=== PATIENT | male | born 1960 | race Caucasian/White ===

== ENCOUNTER → 2017-12-07 | Day surgery (SDC) | payer OTHER, MEDICARE ==
[~2017-12-07] VITALS: Ht 182.9 cm; Wt 115.8 kg
[~2017-12-07] MED LIST: ADVAIR 250-501 EACH INH; AUGMENTIN 875-1 EACH PO; CARVEDILOL3.125 M1 PO; CIPRO250 M1 PO; CLONIDINE HCL0.1 MG PO; COUMADIN5 M2 PO; COUMADIN7.5 M1 PO; COZAAR25 M1 PO; DIGOXIN250 MCG PO; FENOFIBRATE134 M1 PO; FLUOXETINE HCL20 M2 PO; FLUOXETINE HCL40 M1 PO; GLIMEPIRIDE2 MG PO; JANUVIA50 M1 PO; PRAVASTATIN SOD40 M2 PO; SPIRIVA18 MCG INH; TAMSULOSIN HCL0.4 M1 PO; TERAZOSIN HCL5 M1 PO; VITAMIN B-121000 MC3 PO; VITAMIN D250000 UNIT PO; WARFARIN SODIUM5 M1 PO
--- NOTE | 2017-12-07 10:09 | Operative Report ---
Operative/Inv Procedure Report Surgery Date: 12/07/17 Name of Procedure: Cataract extraction lens implantation left eye Pre-Operative Diagnosis: Age-related cataract left eye 20/50 vision Post-Operative Diagnosis: Same Estimated Blood Loss: none Surgeon/Senior Lead Project Manager: Danyel SONG,Parmjit Pearson Anesthesia: local monitored anesthesi Complications: None Operative/Procedure Note Note: The patient was brought to the operating room standard monitoring equipment was attached the patient was prepped and draped in the usual fashion for intraocular surgery. A lid speculum was placed to retract the lids. The case was begun by making 2 partial-thickness corneal relaxing incisions at 75. A temporal incision with a 2.4 mm keratome. The eye was stabilized with a Thayer ring during this incision. 1 mL of non-preserved lidocaine was introduced into the anterior chamber to provide anesthesia. The anterior chamber was then filled and deepened with viscoelastic. A curvilinear capsulorrhexis was achieved using a 30-gauge needle and is a cystotome and capsulorrhexis was finished using a Utrata forceps. A second or paracentesis incision was made temporally with a 1 mm MVR blade. The lens was then hydrodissected with balanced salt solution and found to be rotatable. The lens was emulsified using phacoemulsification and a modified four-quadrant cracking technique. The residual cortical material was removed using automated irrigation and aspiration and as much of the anterior capsular rim was cleaned as well as possible. The posterior capsule was cleaned first with the automated machine on a low setting and then manually with a Og squeegee. The capsular bag was deepened with viscoelastic. The lens a Akreos AO60 18.5 Diopter placed into the bag under direct visualization and rotated so that the haptics were at 12 and 6:00. Viscoelastic was then removed from the eye by flushing it out and then by automated irrigation and aspiration. The eye was pressurized to a normal tone. 1/10 of a cc of vancomycin solution was introduced into the anterior chamber to provide antibiotic prophylaxis. The wounds were sealed by hydrating the stroma adjacent to them and the eye was left at a proper tone after the wounds were checked and found not to be leaking. The lid speculum was removed from the orbit. Antibiotic and steroid drops were placed on the eye and then the eye was shielded. Monitoring equipment was removed from the patient and the patient was removed from the operative suite to the holding area. The patient tolerated the procedure well and will be seen in the office tomorrow.
== END ==
LOC: STS 02:47
DX: H25.9 Unspecified age-related cataract (principal); E11.8 Type 2 diabetes mellitus with unspecified complications; Z79.84 Long term (current) use of oral hypoglycemic drugs; I10 Essential (primary) hypertension; Z85.528 Personal history of other malignant neoplasm of kidney; Z79.01 Long term (current) use of anticoagulants
CPT/HCPCS: J2250; V2632

== ENCOUNTER → 2018-01-04 | Day surgery (SDC) | payer OTHER, MEDICARE ==
[~2018-01-04] VITALS: Ht 182.9 cm; Wt 115.7 kg
--- NOTE | 2018-01-04 11:34 | Operative Report ---
Operative/Inv Procedure Report Surgery Date: 01/04/18 Name of Procedure: Cataract extraction lens implantation right eye Pre-Operative Diagnosis: Age-related cataract right eye 20/30 vision 20/60 glare vision Post-Operative Diagnosis: Same Estimated Blood Loss: none Surgeon/Counter Tender: Danyel SONG,Parmjit Pearson Anesthesia: local monitored anesthesi Complications: None Operative/Procedure Note Note: The patient was brought to the operating room standard monitoring equipment was attached the patient was prepped and draped in the usual fashion for intraocular surgery. A lid speculum was placed to retract the lids. The case was begun by making [2] partial-thickness corneal relaxing [incisions] at [90]. A temporal incision with a 2.4 mm keratome. The eye was stabilized with a Thayer ring during this incision. 1 mL of non-preserved lidocaine was introduced into the anterior chamber to provide anesthesia. The anterior chamber was then filled and deepened with viscoelastic. A curvilinear capsulorrhexis was achieved using a 30-gauge needle and is a cystotome and capsulorrhexis was finished using a Utrata forceps. A second or paracentesis incision was made temporally with a 1 mm MVR blade. The lens was then hydrodissected with balanced salt solution and found to be rotatable. The lens was emulsified using phacoemulsification and a modified four-quadrant cracking technique. The residual cortical material was removed using automated irrigation and aspiration and as much of the anterior capsular rim was cleaned as well as possible. The posterior capsule was cleaned first with the automated machine on a low setting and then manually with a Og squeegee. The capsular bag was deepened with viscoelastic. The lens a Akreos AO60 18.0 Diopter placed into the bag under direct visualization and rotated so that the haptics were at 12 and 6:00. Viscoelastic was then removed from the eye by flushing it out and then by automated irrigation and aspiration. The eye was pressurized to a normal tone. 1/10 of a cc of cefuroxime solution was introduced into the anterior chamber to provide antibiotic prophylaxis. The wounds were sealed by hydrating the stroma adjacent to them and the eye was left at a proper tone after the wounds were checked and found not to be leaking. The lid speculum was removed from the orbit. Antibiotic and steroid drops were placed on the eye and then the eye was shielded. Monitoring equipment was removed from the patient and the patient was removed from the operative suite to the holding area. The patient tolerated the procedure well and will be seen in the office tomorrow.
== END ==
LOC: STS 01:31
DX: H25.9 Unspecified age-related cataract (principal); E11.9 Type 2 diabetes mellitus without complications; Z79.84 Long term (current) use of oral hypoglycemic drugs; I10 Essential (primary) hypertension; I48.91 Unspecified atrial fibrillation; Z79.01 Long term (current) use of anticoagulants
CPT/HCPCS: J2250; V2632

== ENCOUNTER 2018-03-09 16:50 | Emergency (ER) | payer OTHER, MEDICARE ==
[~2018-03-09] VITALS: Ht 182.9 cm; Wt 115.2 kg
[2018-03-09 17:31] LABS: ABSOLUTE BASOPHIL COUNT 0 /CUMM (0.0-0.2); ABSOLUTE EOSINOPHIL COUNT 0.3 /CUMM (0.0-0.7); ABSOLUTE GRANULOCYTE CT 4.5 /CUMM (1.4-6.5); ABSOLUTE LYMPH COUNT 1.2 /CUMM (1.2-3.4); ABSOLUTE MONOCYTE COUNT 0.5 /CUMM (0.10-0.60); BASOPHIL % 0.2 % (0.0-2.0); EOSINOPHIL % 5.2 % (0-5); GRANULOCYTE % 68.7 % (42.2-75.2); HEMATOCRIT 40.2 % (42-52); MEAN CORPUSCULAR HGB 28.8 PG (27.0-31.0); MEAN CORPUSCULAR VOLUME 84.9 FL (80.0-94.0); MEAN PLATELET VOLUME 8.8 FL (7.4-10.4); PLATELET COUNT 221 /CUMM (130-400); RBC DISTRIBUTION WIDTH 14.6 % (11.5-14.5); RED BLOOD CELL CT 4.73 /CUMM (4.70-6.10); WHITE BLOOD CELL COUNT 6.6 /CUMM (4.8-10.8)
--- NOTE | 2018-03-09 21:24 | RADIOLOGY REPORT ---
EXAMINATION: LEFT KNEE 3 VIEWS CLINICAL INFORMATION: Left knee pain after fall. COMPARISON: None. TECHNIQUE: AP, lateral, oblique views of the left knee were obtained. FINDINGS: There are no fractures or dislocations. There is narrowing to the patellofemoral compartment with spurring. There is mild narrowing to the lateral compartment. There is a loose body present within the joint space. There is a juqzk-sk-nnvwursa knee joint effusion. There is medial and lateral compartment chondrocalcinosis. There is no significant soft tissue swelling. IMPRESSION: Qdqey-tq-gknxufmr knee joint effusion without demonstrable acute fracture. Chondrocalcinosis.
--- NOTE | 2018-03-09 21:25 | RADIOLOGY REPORT ---
EXAMINATION: XR HAND, LEFT CLINICAL INFORMATION: Fall onto hands. COMPARISON: None TECHNIQUE: AP and lateral views of the left hand. FINDINGS: The bones and soft tissues are normal. No fracture. Alignment is anatomic. Joint spaces are maintained. No erosions or soft tissue calcifications. IMPRESSION: Normal left hand.
--- NOTE | 2018-03-09 21:34 | RADIOLOGY REPORT ---
EXAMINATION: XR HAND, RIGHT CLINICAL INFORMATION: Fall onto hands. COMPARISON: None TECHNIQUE: AP and lateral views of the right hand. FINDINGS: The bones and soft tissues are normal. No fracture. Alignment is anatomic. Joint spaces are maintained. No erosions or soft tissue calcifications. IMPRESSION: Normal right hand.
--- NOTE | 2018-03-09 21:40 | ED MVC/FALL/TRAUMA COMPLAINT ---
History of Present Illness General Chief Complaint: General Adult Stated Complaint: LEFT KNEE ABRASION Source: patient, family, old records Exam Limitations: no limitations Vital Signs & Intake/Output Vital Signs & Intake/Output Vital Signs Date Time Temp Pulse Resp B/P B/P Pulse O2 O2 Flow FiO2 Mean Ox Delivery Rate 03/09 2208 96.5 56 18 178/80 100 Room Air 03/09 1703 97.8 98 16 159/86 96 Room Air ED Intake and Output 03/10 0000 03/09 1200 Intake Total 0 Output Total Balance 0 Intake, Oral 0 Patient 254 lb Weight Allergies Coded Allergies: No Known Allergies (10/20/17) Reconcile Medications Carvedilol 3.125 MG TABLET 1 TAB PO BID HEART/BP (Reported) Clonidine HCl 0.1 MG TABLET 1 TAB PO QPM SLEEP (Reported) Cyanocobalamin (Vitamin B-12) 1,000 MCG TABLET 1 TAB PO DAILY SUPPLEMENT ( Reported) Digoxin 250 MCG TABLET 1 TAB PO DAILY HEART (Reported) Ergocalciferol (Vitamin D2) (Vitamin D2) 50,000 UNIT CAPSULE 1 CAP PO Q2W SUPPLEMENT (Reported) Fenofibrate,Micronized (Fenofibrate) 134 MG CAPSULE 1 CAP PO DAILY CHOLESTEROL /TRIGLYCERIDES (Reported) Fluoxetine HCl 40 MG CAPSULE 1 CAP PO DAILY MENTAL HEALTH (Reported) Glimepiride 2 MG TABLET 1 TAB PO BID DM (Reported) Losartan Potassium (Cozaar) 25 MG TABLET 1 TAB PO DAILY BP (Reported) Pravastatin Sodium 40 MG TABLET 1 TAB PO DAILY CHOLESTEROL (Reported) Sitagliptin Phosphate (Januvia) 50 MG TABLET 1 TAB PO DAILY DIABETES ( Reported) Tamsulosin HCl 0.4 MG CAP.ER.24H 1 CAP PO DAILY PROSTATE (Reported) Warfarin Sodium (Coumadin) 5 MG TABLET 1 TAB PO AD BLOOD THINNER (Reported) Warfarin Sodium (Coumadin) 7.5 MG TABLET 1 TAB PO WEDFRI BLOOD THINNER ( Reported) Triage Note: 58 YEAR OLD MALE , STATES THAT HE TRIPPED AND FELL EARLIER AND HAS ABRASION TO HIS L KNEE, PT ALSO COMPLAINS OF FLANK PAIN FOR ABOUT 1 WEEK AND MID STERNAL NON RADIATING CP FOR THE PAST WEEK, DENIES CP AT THIS TIME. 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 DENIES PAIN TO HIS KNEE Triage Nurses Notes Reviewed? yes Onset: Just prior to arrival Duration: minute(s):, constant, continues in ED Timing: recent history Severity: mild Injuries/Fall Location: upper extremity, lower extremity Method of Injury: fall Loss of Consciousness: no loss of consciousness No Modifying Factors: none HPI: Prior to admission patient lost his balance and fell onto his left knee and both hands. He sustained abrasion to the left knee. He denies fever chills nausea vomiting diarrhea abdominal pain chest pain shortness breath headache dysuria rash other injury change in motor sensory function change in bowel bladder. Past History Travel History Traveled to [place] past 21 day No Medical History Any Pertinent Medical History? 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 No Review of Systems Review of Systems Constitutional: Reports: no symptoms. Eyes: Reports: no symptoms. Ears, Nose, Throat, Mouth: Reports: no symptoms. Respiratory: Reports: no symptoms. Cardiovascular: Reports: no symptoms. Gastrointestinal/Abdominal: Reports: no symptoms. Genitourinary: Reports: no symptoms. Musculoskeletal: Reports: see HPI, joint pain. Skin: Reports: see HPI. Neurological/Psychological: Reports: no symptoms. All Other Systems: Reviewed and Negative Physical Exam Physical Exam General Appearance: well developed/nourished, alert, awake, anxious, obese Head: atraumatic, normal appearance Eyes: Bilateral: normal appearance, PERRL, EOMI, normal inspection. Ears, Nose, Throat, Mouth: hearing grossly normal, moist mucous membrane Neck: normal inspection, supple, full range of motion, normal alignment Respiratory: normal breath sounds, chest non-tender, no respiratory distress, quiet respiration, lungs clear Cardiovascular: normal peripheral pulses, irregularly irregular, norml femoral pulses equa Peripheral Pulses: 4+ carotid (R), 4+ carotid (L) Gastrointestinal: normal bowel sounds, soft, non-tender, no organomegaly Back: normal inspection, normal range of motion, no vertebral tenderness Extremities: normal range of motion, no ligament instability, Abrasion left knee not actively bleeding Neurologic/Psych: no motor/sensory deficits, awake, alert, oriented x 3, normal gait, normal mood/affect, soundscriber mechanic II-XII nml as tested Skin: normal color Core Measures ACS in differential dx? No CVA/TIA Diagnosis No Sepsis Present: No Sepsis Focused Exam Completed? No Progress Differential Diagnosis: ext injury Plan of Care: Orders Procedure Date/time Status URINALYSIS 03/09 1707 Complete TROPONIN LEVEL 03/09 1707 Complete COMPREHENSIVE METABOLIC PANEL 03/09 1707 Complete CBC WITHOUT DIFFERENTIAL 03/09 1707 Complete EKG 03/09 1656 Active Laboratory Tests 03/09/181716: Urine Color YEL, Urine Clarity CLDY H, Urine pH 6.0, Ur Specific [place] 1.025, Urine Protein 100 H, Urine Ketones NEG, Urine Nitrite POS H, Urine Bilirubin NEG, Urine Urobilinogen 0.2, Ur Leukocyte Esterase TRACE H, Ur Microscopic SEDIMENT EXAMINED, Urine RBC 3-5, Urine WBC 5-10 H, Ur Epithelial Cells RARE, Urine Bacteria MANY H, Urine Hemoglobin SMALL H, Urine Glucose NEG 03/09/181709: Anion Gap 8, Estimated GFR 32 L, BUN/Creatinine Ratio 21.4, Glucose 195 H, Calcium 9.2, Total Bilirubin 0.5, AST 26, ALT 41, Alkaline Phosphatase 62, Troponin I 0.02, Total Protein 6.1 L, Albumin 3.5, Globulin 2.6, Albumin/ Globulin Ratio 1.3, CBC w Diff NO MAN DIFF REQ, RBC 4.73, MCV 84.9, MCH 28.8, MCHC 34.0, RDW 14.6 H, MPV 8.8, Gran % 68.7, Lymphocytes % 18.6 L, Monocytes % 7.3, Eosinophils % 5.2 H, Basophils % 0.2, Absolute Granulocytes 4.5, Absolute Lymphocytes 1.2, Absolute Monocytes 0.5, Absolute Eosinophils 0.3, Absolute Basophils 0 Diagnostic Imaging: Viewed by Me: Radiology Read. Discussed w/RAD: Radiology Read. Radiology Impression: Mnaef-ao-bdjooelt knee joint effusion without demonstrable acute fracture. Chondrocalcinosis., Normal right hand., Normal left hand. Departure Departure Time of Disposition: 2210 Disposition: HOME OR SELF CARE Condition: Stable Clinical Impression Primary Impression: Contusion of knee, left Secondary Impressions: Hyperkalemia Referrals: Tonia SONG,Bo Peralta (PCP/Family) Departure Forms: Customer Survey General Discharge Information
[2018-03-09 22:08] VITALS: BP 178/80
== END 2018-03-09 22:21 ==
LOC: ERH 16:50
PROVIDERS: Emergency Medicine
DX: E87.5 Hyperkalemia (principal); W19.XXXA Unspecified fall, initial encounter; Y92.9 Unspecified place or not applicable; Y93.9 Activity, unspecified; Z79.01 Long term (current) use of anticoagulants
CPT/HCPCS: 73120; 73120-LT; 73120-RT; 73562-LT; 81001; 93005; 93010